=== PATIENT | male | born 1985 | race Caucasian/White ===

== ENCOUNTER 2016-12-14 17:09 | Emergency (ER) | payer SELFPAY ==
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
[2016-12-14 18:37] VITALS: BP 142/85; PULSE 84; RESP 18; TEMP 98.9; O2SAT 98
--- NOTE | 2016-12-15 12:40 | RAD ---
PROCEDURE: Left Knee Radiographs. HISTORY: Pain. COMPARISON: None. FINDINGS: BONES: Normal. No fracture. JOINTS: Tricompartmental osteoarthritis. JOINT EFFUSION: None. OTHER FINDINGS: None. IMPRESSION: No acute fracture. Tricompartmental osteoarthritis.
--- NOTE | 2016-12-15 12:41 | RAD ---
PROCEDURE: Radiographs of the Lumbar Spine. HISTORY: injury COMPARISON: No prior. FINDINGS: BONES: Normal alignment. No listhesis. No fracture. DISC SPACES: Unremarkable. OTHER FINDINGS: None. IMPRESSION: Unremarkable radiographs of the lumbar spine.
== END 2016-12-14 18:38 | disposition home or self-care (01) ==
LOC: C.ER 17:09
DX: S33.5XXA Sprain of ligaments of lumbar spine, initial encounter (principal); S83.92XA Sprain of unspecified site of left knee, initial encounter; V73.6XXA Passenger on bus injured in collision with car, pick-up truck or van in traffic accident, initial encounter; Y92.410 Unspecified street and highway as the place of occurrence of the external cause

== ENCOUNTER 2017-02-03 21:24 | Emergency (ER) | payer SELFPAY ==
[2017-02-03 21:44] VITALS: BP 152/91; PULSE 104; RESP 20; TEMP 98.4; O2SAT 98
[2017-02-03] MEDS ORDERED: Oxycodone/Acetaminophen 5/325 mg Tab PO STA (21:56)
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
[2017-02-03] MEDS ORDERED: Oxycodone/Acetaminophen 5/325 mg Tab ONE (22:00)
== END 2017-02-03 22:13 | disposition home or self-care (01) ==
LOC: C.ER 21:24
DX: M17.12 Unilateral primary osteoarthritis, left knee (principal)